=== PATIENT | male | born 1995 | race Caucasian/White ===

== ENCOUNTER 2019-12-21 12:46 | Emergency (ER) | payer OTHER ==
[~2019-12-21] VITALS: Ht 175.3 cm; Wt 111.4 kg
[2019-12-21 12:50] VITALS: TEMP 98.6
[2019-12-21] MEDS ORDERED: [UNRECOGNIZED DRUG - OTHER] IV (13:08)
[2019-12-21 13:19] LABS: BASO % 1.1 % (0.0-2.0); EOS # 0.1 (0.0-0.7); EOS % 2.2 % (0-4.0); GRAN # 1.5 (1.4-6.5); GRAN % 41.9 % (42.2-75.2); LYMPH # 1.7 (1.2-3.4); LYMPH % 48.1 % (20.0-51.0); MEAN CELL VOLUME 114 fl (80.0-100.0); MEAN CORPUSCULAR HGB CONC 35 g/dl (33.0-37.0); MEAN PLATELET VOLUME 10.9 fl (7.4-10.4); MONO # 0.2 (0.1-0.6); MONO % 6.4 % (1.7-9.3); PLATELET COUNT 94 K/mm3 (130-400); REDCELL DISTRIBUTION WIDTH-CV 15.9 % (11.5-14.5); RETIC # 0.16 M/mm3 (0.02-0.16); RETIC % 7.6 % (0.5-3.52)
[2019-12-21 13:21] LABS: HEMATOCRIT 23.9 % (42.0-52.0); HEMOGLOBIN 8.4 g/dl (13.5-18.0); MEAN CORPUSCULAR HEMOGLOBIN 40 pg (27.0-31.0)
[2019-12-21 13:29] LABS: ALBUMIN 4.5 gm/dL (3.5-5.0); BILIRUBIN,TOTAL 1.5 mg/dL (0.0-1.0); CALCIUM 9.2 mg/dL (8.4-10.2); CREATININE, serum 0.81 (0.66-1.25); TOTAL PROTEIN 7.5 gm/dL (6.4-8.2)
[2019-12-21 13:56] LABS: MONOSCREEN NEGATIVE
[2019-12-21 14:01] LABS: COLLECTION METHOD CLEAN CATCH
[2019-12-21 14:15] LABS: MUCOUS Present /lpf; PH 5 (5-8); SQUAMOUS EPITHELIAL None Seen /hpf; URINE APPEARANCE Hazy; URINE BACTERIA None Seen /hpf; URINE BILIRUBIN Negative (NEGATIVE); URINE BLOOD Negative (NEGATIVE); URINE COLOR Amber; URINE GLUCOSE Negative (NEGATIVE); URINE KETONE Negative (NEGATIVE); URINE LEUKOCYTE ESTERASE Negative (NEGATIVE); URINE NITRATE Negative (NEGATIVE); URINE PROTEIN(semi-quant) Negative (NEGATIVE); URINE RBC None Seen /hpf; URINE UROBILINOGEN >=4.0 mg/dL (NEGATIVE)
[2019-12-21 17:23] VITALS: BP 109/55; PULSE 78
== END 2019-12-21 17:23 | disposition home or self-care (01) ==
LOC: COL.ER 12:46
PROVIDERS: Emergency Medicine
DX: D59.5 Paroxysmal nocturnal hemoglobinuria [Marchiafava-Micheli] (principal); D64.9 Anemia, unspecified; F17.210 Nicotine dependence, cigarettes, uncomplicated
CPT/HCPCS: J7040

== ENCOUNTER 2019-12-22 14:43 | Outpatient (RCR) | payer OTHER ==
[~2019-12-22] VITALS: Ht 175.3 cm; Wt 96.5 kg
[~2019-12-22 14:43] MED LIST: [UNRECOGNIZED DRUG - OTHER] IV
[2019-12-22 15:30] VITALS: BP 122/74; PULSE 67; TEMP 97.8
[2019-12-22 15:45] VITALS: BP 121/72; PULSE 66; TEMP 97.8
[2019-12-22 16:15] VITALS: BP 122/74; PULSE 67; TEMP 97.8
[2019-12-22 16:30] VITALS: BP 121/70; PULSE 62; TEMP 97.8
[2019-12-22 17:00] VITALS: BP 119/68; PULSE 66; TEMP 97.8
[2019-12-22 17:15] VITALS: BP 123/76; PULSE 68; TEMP 97.8
== END 2019-12-22 17:20 | disposition home or self-care (01) ==
LOC: EUO 14:43
DX: D59.5 Paroxysmal nocturnal hemoglobinuria [Marchiafava-Micheli] (principal); Z79.899 Other long term (current) drug therapy
CPT/HCPCS: J7050; P9040